=== PATIENT | male | born 1965 | race Two or more races ===

== ENCOUNTER → 2024-06-16 | Outpatient (CLI) | payer SELFPAY ==
[2024-06-23 07:22] LABS: Testosterone, Free,Dialysis 66.4 pg/mL (35.0-155.0); Testosterone, Total, Dialysis 402 ng/dL (250-1100)
== END | disposition home or self-care (01) ==
PROVIDERS: PCP Surgery; Referring Provider Surgery; Visit Provider Surgery
DX: N52.9 Male erectile dysfunction, unspecified (principal); N40.1 Benign prostatic hyperplasia with lower urinary tract symptoms
CPT/HCPCS: 36415; 84153; 84402; 84403